=== PATIENT | male | born 1970 | race Caucasian/White ===

== ENCOUNTER 2021-06-18 15:31 | Emergency (ER) | payer SELFPAY ==
[~2021-06-18] VITALS: Ht 152.4 cm; Wt 70.0 kg
[2021-06-18] MEDS ORDERED: TETANUS, DIPHTHERIA, PERTUSSIS VAC/PF 0.5ML (>10YR OLD) IM ONE (17:15)
[2021-06-18] MEDS ORDERED: HYDROCODONE/ACETAMINOPHEN 5/325MG TABLET PO ONE (17:30)
[2021-06-18 17:39] VITALS: BP 138/83
[2021-06-18] MEDS ORDERED: HYDR-4001 MT (17:56)
[2021-06-18] MEDS ORDERED: NAPR-1176 MT (17:56)
[2021-06-18] MEDS ORDERED: CEPH500T MT (18:04)
[2021-06-18] MEDS ORDERED: CEPHALEXIN 250MG CAPSULE PO ONE (18:30)
== END 2021-06-18 18:54 | disposition home or self-care (01) ==
LOC: ER 15:31
DX: S68.121A Partial traumatic metacarpophalangeal amputation of left index finger, initial encounter (principal); W23.0XXA Caught, crushed, jammed, or pinched between moving objects, initial encounter; Y93.89 Activity, other specified; Y92.89 Other specified places as the place of occurrence of the external cause; Y99.0 Civilian activity done for income or pay; R03.0 Elevated blood-pressure reading, without diagnosis of hypertension
CPT/HCPCS: 29130; 73130; 90471; 90715; 99283

== ENCOUNTER 2021-07-15 14:07 | Emergency (ER) | payer SELFPAY ==
[~2021-07-15] VITALS: Ht 157.5 cm; Wt 80.0 kg
[~2021-07-15 14:07] MED LIST: CEPH500T MT; HYDR-4001 MT; NAPR-1176 MT
[2021-07-15] MEDS ORDERED: VANCOMYCIN 1 G PREMIX 200 ML IV ONE (15:00)
[2021-07-15] MEDS ORDERED: PIPERACILLIN/TAZ 3.375G PREMIX 50 ML IV ONE (15:00)
[2021-07-15] MEDS ORDERED: SODIUM CHLORIDE 0.9% 1000ML BAG (SEPSIS BOLUS) IV ONE (15:00)
[2021-07-15 15:21] LABS: BASOPHILS % 0.5 % (0.0-2.0); EOSINOPHILS % 3.6 % (0.0-5.0); HEMATOCRIT. 48.2 % (42.0-52.0); HEMOGLOBIN. 16.3 g/dL (14.0-18.0); MEAN CORPUSCULAR HEMOGLOBIN 30.2 pg (28.0-32.0); MEAN CORPUSCULAR VOLUME 89.1 fL (80.0-94.0); MEAN PLATELET VOLUME 8.1 fl (7.4-10.4); NEUTROPHILS % 68.9 % (40.0-76.0); PLATELET 272 x1000/uL (130-400); RED BLOOD CELL COUNT 5.41 mill/uL (4.7-6.1); RED CELL DISTRIBUTION WIDTH 13.3 % (11.6-14.6)
[2021-07-15 15:25] LABS: CHLORIDE 110 mEq/L (98-107)
[2021-07-15 15:32] LABS: C REACTIVE PROTEIN QUANT 3.3 mg/L (0.0-3.0)
[2021-07-15] MEDS ORDERED: SULF1TAB48 MT (17:05)
[2021-07-15 18:08] VITALS: BP 128/77
== END 2021-07-15 18:10 | disposition home or self-care (01) ==
LOC: ER 14:07 → CANBEDREQ 17:20 → ER 18:10
DX: S68.121A Partial traumatic metacarpophalangeal amputation of left index finger, initial encounter (principal); X58.XXXA Exposure to other specified factors, initial encounter; Y93.89 Activity, other specified; Y92.89 Other specified places as the place of occurrence of the external cause
CPT/HCPCS: 36415; 73140; 80053; 83605; 84145; 85025; 85651; 86140; 87040; 96365; 99284; J3370; J7030; J2543